=== PATIENT | female | born 1995 | race Hispanic/Latino ===

== ENCOUNTER 2017-12-02 08:06 | Emergency (ER) | payer OTHER ==
[2017-12-02 08:11] VITALS: BMI 22.8
[2017-12-02 08:13] VITALS: TEMP 98.3; O2SAT 100
--- NOTE | 2017-12-02 09:55 | ED PDOC ---
HPI: Abdomen Time Seen by Provider: 12/02/17 09:07 Chief Complaint (Nursing): Female Genitourinary Chief Complaint (Provider): Abdominal Pain History Per: Patient History/Exam Limitations: no limitations Onset/Duration Of Symptoms: Days (1) Location Of Pain/Discomfort: Suprapubic Quality Of Discomfort: Burning, Pressure Associated Symptoms: denies: Fever, Nausea, Vomiting, Diarrhea Additional Complaint(s): 22 years old female with history of high cholesterol presents to ER for evaluation of pressure, burning lower abdominal pain onset yesterday. Patient reports pain happened gradually, worsened today. She states she takes control everyday and reports experiencing blood in urine this morning. Patient denies nausea, vomiting, diarrhea or fever. LNMP: mid October, PMD: non provided Past Medical History Reviewed: Historical Data, Nursing Documentation, Vital Signs Vital Signs: Last Vital Signs Temp 98.3 F 12/02/17 08:11 Pulse 76 12/02/17 08:11 Resp 17 12/02/17 08:11 BP 124/85 12/02/17 08:11 Pulse Ox 100 12/02/17 08:11 - Medical History PMH: Hypercholesterolemia Other PMH: Ovarian cyst - Surgical History Surgical History: Appendectomy - Family History Family History: States: Unknown Family Hx - Social History Current smoker - smoking cessation education provided: No Alcohol: Social Drugs: Denies - Home Medications Home Medications: Ambulatory Orders Medication Instructions Recorded Nitrofurantoin Macrocrystals 100 mg PO BID #14 cap 12/02/17 [Macrobid] - Allergies Allergies/Adverse Reactions: Allergies Allergy/AdvReac Type Severity Reaction Status Date / Time No Known Allergies Allergy Verified 12/02/17 08:22 Review of Systems ROS Statement: Except As Marked, All Systems Reviewed And Found Negative Constitutional: Negative for: Fever Gastrointestinal: Positive for: Abdominal Pain (lower). Negative for: Nausea, Vomiting, Diarrhea Genitourinary Female: Positive for: Hematuria Physical Exam - Reviewed Nursing Documentation Reviewed: Yes Vital Signs Reviewed: Yes - Physical Exam Appears: Positive for: Non-toxic, No Acute Distress Head Exam: Positive for: ATRAUMATIC, NORMOCEPHALIC Gastrointestinal/Abdominal: Positive for: Soft, Tenderness (mild suprapubic) Neurologic/Psych: Positive for: Alert, Oriented (x3) - ECG O2 Sat by Pulse Oximetry: 100 (RA) Pulse Ox Interpretation: Normal Medical Decision Making Medical Decision Making: Time: 920 Initial Impression: abdominal pain and dysuria. Differential includes but not limited to UTI, r/o . Initial Plan: --Urine --Urine dipstick Scribe Attestation: Documented by Edda Treviño, acting as a scribe for Rohini Milton MD. Provider Scribe Attestation: All medical record entries made by the Scribe were at my direction and personally dictated by me. I have reviewed the chart and agree that the record accurately reflects my personal performance of the history, physical exam, medical decision making, and the department course for this patient. I have also personally directed, reviewed, and agree with the discharge instructions and disposition. Disposition - Clinical Impression Clinical Impression: Urinary tract infection - Patient ED Disposition Is Patient to be Admitted: No Doctor Will See Patient In The: Office Counseled Patient/Family Regarding: Studies Performed, Diagnosis, Need For Followup - Disposition Disposition: Routine/Home Disposition Time: 10:00 Condition: GOOD Additional Instructions: BOZENA RUEDA, thank you for letting us take care of you today. Your pro vider was Rohini Milton MD and you were treated for ABD PAIN. The emergency medical care you received today was directed at your acute symptoms. If you were prescribed any medication, please fill it and take as directed. It may take several days for your symptoms to resolve. Return to the Emergency Department if your symptoms worsen, do not improve, or if you have any other problems. Please contact your doctor or call one of the physicians/clinics you have been referred to that are listed on the Patient Visit Information form that is included in your discharge packet. Bring any paperwork you were given at discharge with you along with any medications you are taking to your follow up visit. Our treatment cannot replace ongoing medical care by a primary care provider outside of the emergency department. Thank you for allowing the [facility] team to be part of your care today. If you had an X-Ray or CT scan: A Radiologist will review the ED reading if any change in treatment is needed we will contact you. If you had a blood, urine, or wound culture: It will take several days for the results, if any change in treatment is needed we will contact you. If you had an STI test: It will take 48 hours for the results. Please call after 1 week if you have not heard back. Prescriptions: Nitrofurantoin Macrocrystals [Macrobid] 100 mg PO BID #14 cap Instructions: Urinary Tract Infections in Adults
[2017-12-02 10:28] VITALS: BP 116/81; PULSE 74; RESP 16
== END 2017-12-02 10:26 | disposition home or self-care (01) ==
LOC: H.ER 08:06
DX: N39.0 Urinary tract infection, site not specified (principal); E78.00 Pure hypercholesterolemia, unspecified